=== PATIENT | male | born 1950 ===

== ENCOUNTER 2023-03-04 09:10 | Day surgery (SDC) | payer OTHER ==
[~2023-03-04] VITALS: Ht 175.3 cm; Wt 82.2 kg
[2023-03-04] MEDS ORDERED: Diovan320 MG (09:31)
[2023-03-04] MEDS ORDERED: POTA10T (09:31)
[2023-03-04] MEDS ORDERED: AMLO5 (09:31)
[2023-03-04] MEDS ORDERED: METO25ER (09:32)
[2023-03-04] MEDS ORDERED: OMEGA-3 + VITA200 ML (09:33)
[2023-03-04] MEDS ORDERED: ASPI81CH (09:33)
[2023-03-04] MEDS ORDERED: Hair, Skin & N1 EACH (09:33)
[2023-03-04] MEDS ORDERED: ERGO400 (09:33)
[2023-03-04 11:05] VITALS: BP 114/64
== END 2023-03-04 11:02 | disposition home or self-care (01) ==
LOC: ORSCSDS 09:10
PROVIDERS: Internal Medicine Gastroenterology
PROC: 0DJD8ZZ Inspection of Lower Intestinal Tract, Via Natural or Artificial Opening Endoscopic (ICD-10-PCS; principal; 2023-03-04 10:30)
DX: Z12.11 Encounter for screening for malignant neoplasm of colon (principal); R19.5 Other fecal abnormalities; K57.30 Diverticulosis of large intestine without perforation or abscess without bleeding; I12.9 Hypertensive chronic kidney disease with stage 1 through stage 4 chronic kidney disease, or unspecified chronic kidney disease; N18.31 Chronic kidney disease, stage 3a; E78.5 Hyperlipidemia, unspecified; Z87.891 Personal history of nicotine dependence; Z79.82 Long term (current) use of aspirin; Z79.899 Other long term (current) drug therapy
CPT/HCPCS: J2704; J7120